=== PATIENT | male | born 1995 | race African-American/Black ===

== ENCOUNTER 2018-07-12 22:12 | Emergency (ER) | payer OTHER, SELFPAY ==
[2018-07-12 22:22] VITALS: BP 149/88; PULSE 69; RESP 14; TEMP 36.6; O2SAT 100; BMI 31.5
--- NOTE | 2018-07-12 22:27 | DI.CT.S_ITS ---
PROCEDURE: CT PELVIS W CON INDICATIONS: tori rectal abscess eval for deep infection TECHNIQUE: After the administration of intravenous contrast, 5 mm thick sections acquired from the iliac crests to the symphysis. 5 mm coronal and sagittal reformats were acquired. For radiation dose reduction, the following was used: automated exposure control, adjustment of mA and/or kV according to patient size. COMPARISON: None. FINDINGS: Image quality: Excellent. Peritoneum and bowel: There is mild thickening of rectum consistent with proctitis. There is no perirectal fluid collections to suggest abscess. Distal sigmoid colon demonstrate normal wall thickness and caliber. No free fluid or air. Genitourinary: Bladder wall thickness is normal. Nodes and vessels: No iliac, pelvic, or inguinal adenopathy by size criteria. Iliac vessels demonstrate normal size and enhancement. Bones: No suspicious bony lesions. Miscellaneous: No inguinal hernias. IMPRESSION: 1. Thickening of rectum consistent with proctitis. There is no perirectal fluid collection to suggest abscess. No significant discrepancy with the machinist 2nd shift radiology preliminary report. Dictated by: Satya Ontiveros M.D. on 07/13/2018 at 7:44 Approved by: Satya Ontiveros M.D. on 07/13/2018 at 7:48
--- NOTE | 2018-07-12 22:28 | ED.GENADULT ---
HPI - General Adult General Chief complaint: Skin/Abscess/Foreign Body Stated complaint: has a knot that is getting bigger Time Seen by Provider: 07/12/18 22:27 Source: patient Mode of arrival: ambulatory Limitations: no limitations History of Present Illness HPI narrative: patient is otherwise healthy 23-year-old male here for evaluation of a bump on his upper left inner thigh. He states that it has been getting worse over the past couple days. [place] was referred to General surgery however he did not make this appointment. He comes the emergency department today because it is now painful for him to walk. He states that is draining. Has never had anything like this before. Related Data Allergies Allergy/AdvReac Type Severity Reaction Status Date / Time prednisone Allergy Uncoded 07/12/18 22:22 Review of Systems Constitutional Denies fever(s) Gastrointestinal Gastrointestinal: Denies change in stool character Genitourinary Denies dysuria and Denies testicular pain Integumentary/Breasts Comments: Redness and a draining lump on his left upper inner thigh [facility] Medical History Healthy adult (Acute) Social History Smoking Status: Never smoker Social History Smoking Status: Never smoker Exam Initial Vital Signs Initial Vital Signs: Vital Signs Temperature 97.9 F 07/12/18 22:22 Pulse Rate 69 07/12/18 22:22 Respiratory Rate 14 07/12/18 22:22 Blood Pressure 149/88 H 07/12/18 22:22 Pulse Oximetry 100 07/12/18 22:22 Const General: cooperative, healthy appearing, comfortable, well developed, well groomed and No acute distress Orientation: alert, awake and oriented x3 HENMT Head: normal to inspection and normocephalic Resp Effort & Inspection: normal respiratory effort Cardio Rate: regular rate Skin Other: patient with a 2 cm area of induration with a punctate draining wound just left of his anus. Neuro General: alert, awake and oriented x3 Extrem General: normal to inspection and capillary refill normal Psych Appearance: grossly normal and well kempt Procedures Abscess I/D Site: other ( Buttocks) Side (if applicable): left Local Anesthetic: lidocaine 1% and with epi Amount of anesthesia used (mL): 3 Technique: incised with #11 blade Irrigation: No Packing used?: none Course Orders Ordered: ED Orders 07/12/18 22:27 CT pelvis w con Stat 07/12/18 22:40 Basic Metabolic Panel Stat Complete Blood Count AUTO DIFF Stat Discontinued Medications Sodium Chloride (Normal Saline 0.9%) 1,000 mls @ 1,000 mls/hr IV BOLUS ONE Stop: 07/12/18 23:26 Last Admin: 07/12/18 22:56 Dose: 1,000 mls/hr Vital Signs - 8 hr 07/12/18 22:22 07/12/18 22:31 Temperature 97.9 F Pulse Rate 69 65 Respiratory Rate 14 18 Blood Pressure 149/88 H Blood Pressure [Right Arm] 132/79 Pulse Oximetry 100 99 Medical Decision Making Lab Data Lab results reviewed: Yes I reviewed the patient's lab results. Result diagrams: 07/12/18 22:40 07/12/18 22:40 Lab Results 07/12/18 07/12/18 Range/Units 22:40 22:40 WBC 7.4 (4.5-11.0) X10^3/uL RBC 5.74 (4.5-5.9) X10^6/uL Hgb 15.3 (13.5-17.5) g/dL Hct 45.7 (41-53) % MCV 79.6 L (80-100) fL MCH 26.7 (26-34) PG MCHC 33.5 (30-36) % RDW 12.9 (11.6-14.8) % Plt Count 272 (150-400) X10^3/uL Neut % (Auto) 59.1 (50-75) % Lymph % (Auto) 32.0 (25-40) % [place] % (Auto) 7.3 (3-14) % Eos % (Auto) 0.8 L (2-4) % Baso % (Auto) 0.8 (0-2) % Neut # (Auto) 4300 (3194-9771) /uL Lymph # (Auto) 2400 (9667-7910) /uL [place] # (Auto) 500 (0-900) /uL Eos # (Auto) 100 (0-450) /uL Baso # (Auto) 100 (0-100) /uL Sodium 139 (137-145) mmol/L Potassium 3.9 (3.4-5.1) mmol/L Chloride 102 (98-107) mmol/L Carbon Dioxide 27 (22-32) mmol/L BUN 22 H (9-20) mg/dL Creatinine 1.00 (0.66-1.25) mg/dL Estimated GFR > 60.0 (>60) mL/min BUN/Creatinine Ratio 22.0 (6-22) Glucose 96 (70-100) mg/dL Calcium 9.3 (8.4-10.2) mg/dL Imaging Data CT pelvis: Radiologist's impression: minimal wall thickening involving lower rectum, nonspecific: Considerations would include minimal proctitis. There is no evidence of abscess MDM Narrative Medical decision making narrative: patient is nontoxic appearing. CT scan of the pelvis shows no deep abscess. Bedside ultrasound shows a small fluid collection very superficial. This was drained as described above. No surrounding erythema. No indication for antibiotics. No packing was placed. Patient was given care instructions. He expressed understanding and agreement with plan. Discharge Plan Departure Patient Disposition: Home Clinical Impression: Abscess of skin or subcutaneous tissue Qualifiers: Site of cutaneous abscess: buttock Qualified Code(s): L02.31 - Cutaneous abscess of buttock Instructions: DI for Incision and Drainage Activity Restrictions/Additional Instructions: keep the area clean. You can shower like normal. Use soap and water like normal. Contact your medical department for follow-up. Return to the emergency department for any new or worsening symptoms. Stand Alone Forms: Work Release Note
[2018-07-12 22:31] VITALS: BP 132/79; PULSE 65; RESP 18; O2SAT 99
[2018-07-12] MEDS: SODIUM CHLORIDE 0.9% 1,000 ML 1000 ML IV (22:56)
[2018-07-12 22:57] LABS: Add Manual Diff / Slide Review NO; Basophils Absolute Auto 100 /uL (0-100); Basophils Percent Auto 0.8 % (0-2); Eosinophils Absolute Auto 100 /uL (0-450); Eosinophils Percent Auto 0.8 % (2-4); Hematocrit 45.7 % (41-53); Hemoglobin 15.3 g/dL (13.5-17.5); Lymphocytes Absolute Auto 2400 /uL (1100-4500); Mean Corpuscular HGB Conc 33.5 % (30-36); Mean Corpuscular Hemoglobin 26.7 PG (26-34); Mean Corpuscular Volume 79.6 fL (80-100); Monocytes Absolute Auto 500 /uL (0-900); Monocytes Percent Auto 7.3 % (3-14); Neutrophils Absolute Auto 4300 /uL (1500-7000); Neutrophils Percent Auto 59.1 % (50-75); Platelet Count 272 X10^3/uL (150-400); Red Blood Cell Count 5.74 X10^6/uL (4.5-5.9); Red Cell Distribution Width 12.9 % (11.6-14.8); White Blood Cell Count 7.4 X10^3/uL (4.5-11.0)
[2018-07-12 23:05] LABS: Blood Urea Nitrogen 22 mg/dL (9-20); Calcium 9.3 mg/dL (8.4-10.2); Carbon Dioxide 27 mmol/L (22-32); Chloride 102 mmol/L (98-107); Estimated Glomerular Filt Rate > 60.0 mL/min (>60); Glucose 96 mg/dL (70-100); HEMOLYSIS 17 (0-50); Potassium 3.9 mmol/L (3.4-5.1); Sodium 139 mmol/L (137-145)
[2018-07-13 00:41] VITALS: BP 123/79; PULSE 80; RESP 14; O2SAT 100
== END 2018-07-13 00:40 | disposition home or self-care (01) ==
PROVIDERS: Emergency Provider Emergency Medicine
DX: L02.31 Cutaneous abscess of buttock (principal)
CPT/HCPCS: 10060; 72193; 80048; 85025; 96360; 96361; 99283; 99285; Q9967

== ENCOUNTER 2018-10-15 22:22 | Emergency (ER) | payer OTHER, SELFPAY ==
[2018-10-15 22:27] VITALS: BP 139/91; PULSE 69; RESP 14; TEMP 36.7; O2SAT 99
--- NOTE | 2018-10-15 23:27 | ED_ITS ---
HPI - Skin/Abscess/Foreign Bdy General Chief complaint: Skin/Abscess/Foreign Body Stated complaint: possible spider bite Time Seen by Provider: 10/15/18 22:31 Source: patient and family Mode of arrival: ambulatory Limitations: no limitations History of Present Illness HPI narrative: 23-year-old male occasional smoker with history of MRSA skin infections presents with a painful firm bump on his right buttock that is been present for the past few days. It hurts him to sit on it. He denies any drainage. He states it has come to a cole a bit. He denies fever or chills. He denies painful bowel movements. complaint: abscess/boil Onset (ago): day(s) Tetanus up to date: yes Location: buttocks Severity: mild Quality: aching Pain Consistency: constant Relieving factors: none Exacerbating factors: palpation Context: none Associated symptoms: denies other symptoms Treatments prior to arrival: none Related Data Allergies Allergy/AdvReac Type Severity Reaction Status Date / Time prednisone Allergy Uncoded 07/12/18 22:22 Review of Systems Constitutional Denies chills, Denies fever(s), Denies lethargy and Denies weakness Eyes Denies change in vision, Denies eye discharge, Denies irritation and Denies loss of vision ENT Ears, Nose, Mouth, and Throat: Denies change in voice, Denies neck pain and Denies sore throat Cardiovascular Denies chest pain, Denies irregular heart rhythm, Denies lightheadedness, Denies palpitations, Denies dyspnea, Denies dyspnea on exertion and Denies orthopnea Respiratory Denies cough, Denies dyspnea, Denies dyspnea on exertion and Denies wheezing Gastrointestinal Gastrointestinal: Denies abdominal pain, Denies change in bowel habits, Denies diarrhea, Denies nausea and Denies vomiting Genitourinary Denies hematuria, Denies flank pain, Denies urinary incontinence and Denies urinary urgency Musculoskeletal Denies neck pain Integumentary/Breasts Denies pruritus, Reports erythema, Denies rash, Reports skin pain, Reports skin swelling and Denies wounds Neurologic Denies confusion, Denies loss of vision and Denies weakness Psychiatric Denies anxiety, Denies confusion, Denies depression, Denies homicidal ideation and Denies suicidal ideation Endocrine Denies palpitations Hematologic/Lymphatic Denies easy bruising Allergic/Immunologic Denies wheezing [facility] Medical History Healthy adult (Acute) Social History Smoking Status: Never smoker Social History Smoking Status: Never smoker Exam Narrative Exam Narrative: GEN: AOx3 and in mild distress EYES: Pupils are equal, round, and reactive to light and accommodation. Extraoccular muscles are intact bilaterally. There is no subconjunctival hemorrhage or exudate. CHEST: Lungs are clear to auscultation bilaterally and free of wheezes, rales, or rhonchi. Heart rate is regular rhythm, there are no murmurs, clicks, rubs, or gallops. There is no chest wall tenderness. ABD: Abdomen is soft and nontender. There is no guarding or rebound. Bowel sounds are normal in all 4 quadrants. There is no mass or organomegaly. EXT: Full painless ROM of all extremities with no loss of sensation or strength. SKIN: 2 cm indurated, tender lesion on right buttock with small central pustule. Not fluctuant. No surrounding erythema. Initial Vital Signs Initial Vital Signs: Vital Signs Temperature 98.0 F 10/15/18 22:27 Pulse Rate 69 10/15/18 22:27 Respiratory Rate 14 10/15/18 22:27 Blood Pressure 139/91 H 10/15/18 22:27 Pulse Oximetry 99 10/15/18 22:27 Procedures Abscess I/D Site: other (R buttock) Side (if applicable): right Local Anesthetic: lidocaine 1% and with bicarb Amount of anesthesia used (mL): 3 Technique: needle aspiration Amount of fluid expressed (mL): 1 Irrigation: No Packing used?: none Complications: pain Course Vital Signs - 8 hr 10/15/18 22:27 Temperature 98.0 F Pulse Rate 69 Respiratory Rate 14 Blood Pressure 139/91 H Pulse Oximetry 99 Discharge Plan Departure Patient Disposition: Home Clinical Impression: Abscess of skin or subcutaneous tissue Qualifiers: Site of cutaneous abscess: buttock Qualified Code(s): L02.31 - Cutaneous abscess of buttock Discharge Date/Time: 10/15/18 23:35 Interventions: ED Discharge Assessment Last Done: 10/15/18 23:35 Instructions: DI for Skin Abscess Activity Restrictions/Additional Instructions: *You have been diagnosed with [acute superficial cutaneous abscess] *What to do: *Take medications as directed: Tylenol or motrin for pain *Follow up with your primary care provider in 2-3 days, call for an appointment. Let them know you were seen in the Emergency Department and that we ask that you be seen in follow up *Return to ER if you should have any new, worsening or concerning symptoms *Use of warm compresses and possibly epsom salt baths
== END 2018-10-15 23:35 | disposition home or self-care (01) ==
PROVIDERS: Emergency Provider Emergency Medicine
DX: L02.31 Cutaneous abscess of buttock (principal)
CPT/HCPCS: 99282

== ENCOUNTER 2019-03-18 23:33 | Emergency (ER) | payer OTHER, SELFPAY ==
[2019-03-18 23:51] VITALS: BP 142/73; PULSE 75; RESP 14; TEMP 36.7; O2SAT 96; BMI 30.1
--- NOTE | 2019-03-19 00:09 | DI.RAD.S_ITS ---
PROCEDURE: XR KNEE RT 3V INDICATIONS: pain after falling yesterday TECHNIQUE: 3 views of the knee were acquired. COMPARISON: None. FINDINGS: Bones: No fractures or dislocations. No suspicious bony lesions. Soft tissues: No joint effusion. No suspicious soft tissue calcifications. IMPRESSION: No acute osseous abnormality. Dictated by: Minh Washington M.D. on 03/19/2019 at 7:56 Approved by: Minh Washington M.D. on 03/19/2019 at 7:56
--- NOTE | 2019-03-19 00:09 | ED.LOWEXIN ---
HPI - Extremity Injury (Lower) General Chief Complaint: Extremity Injury, Lower Stated Complaint: RT knee injury yesterday/pain hard to walk Time Seen by Provider: 03/18/19 23:58 Source: patient Mode of arrival: Wheelchair Limitations: no limitations History of Present Illness HPI Narrative: Patient is otherwise healthy 23-year-old male here for evaluation of right knee injury. Patient states that yesterday he slipped while he was in the shower landing on his knee cap. His knee was bent at the time. Has had pain around this area and on the back of his knee since then. Came in this evening because he has had continued pain. Related Data Home Medications Medication Instructions Recorded Confirmed No Known Home Medications 03/18/19 03/18/19 Allergies Allergy/AdvReac Type Severity Reaction Status Date / Time prednisone Allergy Uncoded 03/18/19 23:55 Review of Systems Constitutional Constitutional: Denies fever(s) Musculoskeletal Comments: Right knee pain Integumentary/Breasts Skin/Breast: Denies rash Neurologic Neurologic: Denies behavioral changes Psychiatric Psychiatric: Denies behavioral changes Hematologic/Lymphatic Hematologic/Lymphatic: Denies easy bleeding and Denies easy bruising Patient History Medical History Healthy adult (Acute) Social History Smoking Status: Never smoker alcohol intake frequency: holidays/special occasions only Substance Use Type: does not use Exam Initial Vital Signs Initial Vital Signs: Vital Signs Temperature 98.0 F 03/18/19 23:51 Pulse Rate 75 03/18/19 23:51 Respiratory Rate 14 03/18/19 23:51 Blood Pressure 142/73 H 03/18/19 23:51 Pulse Oximetry 96 03/18/19 23:51 Const General: cooperative and comfortable Cardio Pulses: dorsalis pedis present Skin Other: Patient with a small skin abrasion on the tibial tuberosity of the right knee. This does not appear to be new. There is no surrounding erythema. Neuro Sensory Exam: no sensory deficits noted Extrem Other: Right hip unremarkable. Patient does have tenderness over the patella tendon of the right leg. He is able to do a straight leg raise but only a very small amount. He states this is secondary to pain and also weakness. No tenderness palpation of the quadriceps tendon. Does have some tenderness to palpation along the lateral hamstring posteriorly along the lateral joint line. No medial side tenderness. Minimal if any effusion. Procedures Orthopedic Splinting/Casting Injury #1: Side: right Lower Extremity Injury Location: knee Lower Extremity Immobilizer: knee immobilizer Other Orthopedic Equipment: crutches Post splinting neuro exam: intact Post splinting vascular exam: intact Placed by: Nursing Course Orders Ordered: ED Orders 03/19/19 00:09 XR knee RT 3V Stat Vital Signs Vital signs: Vital Signs - 8 hr 03/18/19 23:51 Temperature 98.0 F Pulse Rate 75 Respiratory Rate 14 Blood Pressure 142/73 H Pulse Oximetry 96 MDM - Extremity Injury (Lower) Imaging Data Knee x-ray: Attestation: I personally reviewed and interpreted this imaging study as follows: My impression: No fractures, no dislocations MDM Narrative Medical decision making narrative: Patient is neurovascularly intact. He is able to do somewhat of a straight leg raise however it is limited by pain. There is potentially a deficit in the patella tendon however it is somewhat difficult to tell. His x-rays are unremarkable. I do have some concern about a patella tendon injury. He could also have a lateral meniscal injury or both. Patient was placed in a knee immobilizer and given crutches as needed for comfort. He was given a CD with his x-rays on a to take to the Orthopedic Department over on the [facility]. He was instructed to contact [place] medical [place]. He expressed understanding agreement plan Discharge Plan Departure Patient Disposition: Home Clinical Impression: Right knee injury Qualifiers: Encounter type: initial encounter Qualified Code(s): S89.91XA - Unspecified injury of right lower leg, initial encounter Discharge Date/Time: 03/19/19 01:47 Instructions: How to Use Crutches, How To Perform RICE (Rest, Ice, Compress, Elevate) Activity Restrictions/Additional Instructions: Recommend that tomorrow you [place] and also your medical department for a follow-up. I do have some concern about a patella tendon injury. You can also ice your knee. I would recommend this as well. Return to the emergency department for any new or worsening symptoms Prescriptions: No Action No Known Home Medications RF: 0 Stand Alone Forms: Work Release Note
== END 2019-03-19 01:47 | disposition home or self-care (01) ==
PROVIDERS: Emergency Provider Emergency Medicine
DX: S89.91XA Unspecified injury of right lower leg, initial encounter (principal); W18.2XXA Fall in (into) shower or empty bathtub, initial encounter
CPT/HCPCS: 73562; 99283

== ENCOUNTER 2019-05-14 23:05 | Emergency (ER) | payer OTHER, SELFPAY ==
[2019-05-14 23:19] VITALS: BP 133/75; PULSE 88; RESP 15; TEMP 36.6; O2SAT 99; BMI 29.7
--- NOTE | 2019-05-14 23:25 | DI.RAD.S_ITS ---
PROCEDURE: XR ACUTE ABDOMEN SERIES INDICATIONS: Abdominal pain TECHNIQUE: One view chest and two views of the abdomen were acquired. COMPARISON: None. FINDINGS: Surgical changes and devices: None. Chest: Lungs are clear. Heart size is normal. No pleural effusions. No pneumoperitoneum. Abdomen: Bowel gas pattern is normal. Moderate amount of stool in colon. No suspicious calcifications. Visualized solid organ contours appear normal. Bones: No suspicious bony lesions. IMPRESSION: Normal bowel gas pattern. Dictated by: Satya Ontiveros M.D. on 05/15/2019 at 8:56 Approved by: Satya Ontiveros M.D. on 05/15/2019 at 8:57
--- NOTE | 2019-05-14 23:32 | ED_ITS ---
HPI - Nausea/Vomiting/Diarrhea General Chief complaint: Nausea/Vomiting/Diarrhea Stated complaint: NAUSEA STOMACH ACHE DIARRHEA Time Seen by Provider: 05/14/19 23:09 Source: patient Mode of arrival: Ambulatory Limitations: no limitations History of Present Illness HPI Narrative: 24M nonsmoker without significant medical history presents with the chief complaint of nausea, episodic abdominal pain and diarrhea since last night. He states his symptoms started about 6 hours after eating out. His friend had the same food and is not sick. No fever or chills. Patient states that the left lower quadrant pain is achy and crampy and does not have any provocation, palliation or radiation. He denies any history of the same. He states he has had multiple episodes of loose stools and that the pain seems to build until he has a bowel movement at which point it improves. He denies any recent antibiotics, international travel or bloody diarrhea. MD complaint: nausea, diarrhea and abdominal pain Onset (ago): hour(s) Description of Diarrhea: watery Associated Abdominal Pain: Yes Location of pain: LLQ Severity: moderate Quality: cramping Pain Consistency: intermittent Relieving factors: none Exacerbating factors: none Context: possible food poisoning Related Data Home Medications Medication Instructions Recorded Confirmed No Known Home Medications 03/18/19 03/18/19 Allergies Allergy/AdvReac Type Severity Reaction Status Date / Time prednisone Allergy Uncoded 03/18/19 23:55 Review of Systems Constitutional Constitutional: Denies chills, Denies fatigue, Denies fever(s), Denies frequent falls, Denies lethargy and Denies weakness Eyes Eyes: Denies change in vision, Denies eye discharge, Denies irritation and Denies loss of vision ENT Ears, Nose, Mouth, and Throat: Denies change in voice, Denies dizziness, Denies neck pain, Denies sore throat and Denies throat swelling Cardiovascular Cardiovascular: Denies chest pain, Denies irregular heart rhythm, Denies lightheadedness, Denies palpitations, Denies dyspnea, Denies dyspnea on exertion and Denies orthopnea Respiratory Respiratory: Denies cough, Denies dyspnea, Denies dyspnea on exertion and Denies wheezing Gastrointestinal Gastrointestinal: Reports abdominal pain, Denies change in bowel habits, Reports diarrhea and Reports nausea Genitourinary Genitourinary: Denies hematuria, Denies flank pain, Denies urinary incontinence and Denies urinary urgency Musculoskeletal Musculoskeletal: Denies back pain, Denies muscle weakness, Denies neck pain, Denies numbness and Denies tingling Integumentary/Breasts Skin/Breast: Denies pruritus, Denies erythema, Denies rash and Denies wounds Neurologic Neurologic: Denies behavioral changes, Denies confusion, Denies dizziness, Denies frequent falls, Denies loss of vision, Denies numbness, Denies tingling and Denies weakness Psychiatric Psychiatric: Denies anxiety, Denies behavioral changes, Denies confusion, Denies depression, Denies homicidal ideation and Denies suicidal ideation Endocrine Endocrine: Denies fatigue, Denies flushing and Denies palpitations Hematologic/Lymphatic Hematologic/Lymphatic: Denies easy bruising Allergic/Immunologic Allergic/Immunologic: Denies urticaria, Denies throat swelling and Denies wheezing Patient History Medical History Healthy adult (Acute) Social History Smoking Status: Never smoker Smoking Status: Never smoker alcohol intake frequency: holidays/special occasions only Substance Use Type: does not use Exam Narrative Exam Narrative: GENERAL: [24] year old patient appears stated age. Well- nourished, well-developed patient, in mild distress. HEAD: Atraumatic. Normocephalic. EYES: Pupils equal round and reactive. Extraocular motions intact. No scleral icterus. No injection or drainage. ENT: Nose without bleeding, purulent drainage. Throat without erythema, tonsillar hypertrophy or exudate. Airway patent. NECK: Trachea midline. Non tender CARDIOVASCULAR: Regular rate and rhythm without murmurs, gallops, or rubs. RESPIRATORY: Clear to auscultation. Breath sounds equal bilaterally. No wheezes, rales, or rhonchi. GASTROINTESTINAL: Abdomen soft, non-tender, nondistended. Increased bowel sounds EXTREMITIES: No edema or joint tenderness. BACK: Nontender without deformity or crepitance. No flank tenderness. NEURO: AOx3. SKIN: No rash or erythema of visible areas Initial Vital Signs Initial Vital Signs: Vital Signs Temperature 97.9 F 05/14/19 23:19 Pulse Rate 88 05/14/19 23:19 Respiratory Rate 15 05/14/19 23:19 Blood Pressure 133/75 05/14/19 23:19 Pulse Oximetry 99 05/14/19 23:19 Course Orders Ordered: ED Orders 05/14/19 23:25 XR acute abdomen series Stat 05/14/19 23:50 Complete Blood Count AUTO DIFF Stat Comprehensive Metabolic Panel Stat Discontinued Medications Sodium Chloride (Normal Saline 0.9%) 1,000 mls @ 1,000 mls/hr IV BOLUS ONE Stop: 05/15/19 00:23 Last Admin: 05/14/19 23:49 Dose: 1,000 mls/hr Documented by: GARRISON Ketorolac Tromethamine (Toradol) 15 mg IV NOW ONE Stop: 05/14/19 23:25 Last Admin: 05/14/19 23:50 Dose: 15 mg Documented by: GARRISON Ondansetron HCl (Zofran) 4 mg IV NOW ONE Stop: 05/14/19 23:25 Last Admin: 05/14/19 23:50 Dose: 4 mg Documented by: GARRISON Ondansetron HCl (Zofran Odt Prepack) 1 bottle MISC SEEINSTR ONE Stop: 05/15/19 01:03 Last Admin: 05/15/19 01:12 Dose: 1 bottle Documented by: LITTLE Vital Signs Vital signs: Vital Signs - 8 hr 05/15/19 01:17 Pulse Rate 92 H Respiratory Rate 14 Blood Pressure 126/85 Pulse Oximetry 99 MDM - Nausea/Vomiting/Diarrhea Lab Data Result diagrams: 05/14/19 23:50 05/14/19 23:50 Labs: Lab Results 05/14/19 05/14/19 Range/Units 23:50 23:50 WBC 6.0 (4.5-11.0) X10^3/uL RBC 5.10 (4.5-5.9) X10^6/uL Hgb 13.9 (13.5-17.5) g/dL Hct 41.7 (41-53) % MCV 81.8 (80-100) fL MCH 27.2 (26-34) PG MCHC 33.2 (30-36) % RDW 12.7 (11.6-14.8) % Plt Count 210 (150-400) X10^3/uL Neut % (Auto) 55.8 (50-75) % Lymph % (Auto) 34.8 (25-40) % [place] % (Auto) 6.8 (3-14) % Eos % (Auto) 1.7 L (2-4) % Baso % (Auto) 0.9 (0-2) % Neut # (Auto) 3300 (7337-6706) /uL Lymph # (Auto) 2100 (5271-2057) /uL [place] # (Auto) 400 (0-900) /uL Eos # (Auto) 100 (0-450) /uL Baso # (Auto) 100 (0-100) /uL Sodium 138 (137-145) mmol/L Potassium 3.9 (3.4-5.1) mmol/L Chloride 105 (98-107) mmol/L Carbon Dioxide 25 (22-32) mmol/L BUN 14 (9-20) mg/dL Creatinine 0.80 (0.66-1.25) mg/dL Estimated GFR > 60.0 (>60) mL/min BUN/Creatinine Ratio 17.5 (6-22) Glucose 114 H (70-100) mg/dL Calcium 9.1 (8.4-10.2) mg/dL Total Bilirubin 0.5 (0.2-1.3) mg/dL AST 23 (17-59) IU/L ALT 19 (<50) IU/L Alkaline Phosphatase 81 (38-126) U/L Total Protein 6.8 (6.3-8.2) g/dL Albumin 4.2 (3.5-5.0) g/dL Globulin 2.6 (1.7-4.1) g/dL Albumin/Globulin Ratio 1.6 (1.0-2.8) Imaging Data Abdominal x-ray: My Impression: nonspecific bowel gas pattern Discharge Plan Departure Patient Disposition: Home Clinical Impression: Gastroenteritis Discharge Date/Time: 05/15/19 01:34 Instructions: DI for Viral Gastroenteritis -- Adult Activity Restrictions/Additional Instructions: *You have been diagnosed with [gastroenteritis, possibly from bad food] *What to do: *Take medications as directed *Follow up with your primary care provider in 2-3 days, call for an appointment. Let them know you were seen in the Emergency Department and that we ask that you be seen in follow up *Return to ER if you should have any new, worsening or concerning symptoms 1. Drink plenty of fluids with frequent small sips. 2. For the next 24 hours a clear liquid diet is advised. After that please employ a brat diet which would include bananas, rice, apples, toast. 3. Please take medications as directed. 4. Please follow-up with your doctor in the next 1-2 days. Call the office for an appointment. 5. Please return to the emergency Department for any worsening or persistent symptoms, such as increasing pain or fever. Prescriptions: No Action No Known Home Medications RF: 0 Stand Alone Forms: Work Release Note
[2019-05-14] MEDS: SODIUM CHLORIDE 0.9% 1,000 ML 1000 ML IV (23:49)
[2019-05-14] MEDS: ONDANSETRON 4 MG/2 ML INJ IV (23:50)
[2019-05-14] MEDS: KETOROLAC 60 MG/2 ML VIAL 15 MG IV (23:50)
[2019-05-14 23:58] LABS: Add Manual Diff / Slide Review NO; Basophils Absolute Auto 100 /uL (0-100); Basophils Percent Auto 0.9 % (0-2); Eosinophils Absolute Auto 100 /uL (0-450); Eosinophils Percent Auto 1.7 % (2-4); Hematocrit 41.7 % (41-53); Hemoglobin 13.9 g/dL (13.5-17.5); Lymphocytes Absolute Auto 2100 /uL (1100-4500); Lymphocytes Percent Auto 34.8 % (25-40); Mean Corpuscular HGB Conc 33.2 % (30-36); Mean Corpuscular Hemoglobin 27.2 PG (26-34); Mean Corpuscular Volume 81.8 fL (80-100); Monocytes Absolute Auto 400 /uL (0-900); Monocytes Percent Auto 6.8 % (3-14); Neutrophils Absolute Auto 3300 /uL (1500-7000); Neutrophils Percent Auto 55.8 % (50-75); Platelet Count 210 X10^3/uL (150-400); Red Cell Distribution Width 12.7 % (11.6-14.8)
[2019-05-15 00:07] LABS: Alanine Aminotransferase 19 IU/L (<50); Albumin 4.2 g/dL (3.5-5.0); Albumin Globulin Ratio 1.6 (1.0-2.8); Alkaline Phosphatase 81 U/L (38-126); Aspartate Aminotransferase 23 IU/L (17-59); BUN Creatinine Ratio 17.5 (6-22); Bilirubin Total 0.5 mg/dL (0.2-1.3); Blood Urea Nitrogen 14 mg/dL (9-20); Calcium 9.1 mg/dL (8.4-10.2); Carbon Dioxide 25 mmol/L (22-32); Chloride 105 mmol/L (98-107); Estimated Glomerular Filt Rate > 60.0 mL/min (>60); Globulin 2.6 g/dL (1.7-4.1); Glucose 114 mg/dL (70-100); HEMOLYSIS 15 (0-50); Potassium 3.9 mmol/L (3.4-5.1); Sodium 138 mmol/L (137-145); Total Protein 6.8 g/dL (6.3-8.2)
[2019-05-15] MEDS: ONDANSETRON 4 MG ODT PREPACK 1 BOTTLE MISC (01:12)
[2019-05-15 01:17] VITALS: BP 126/85; PULSE 92; RESP 14; O2SAT 99
== END 2019-05-15 01:34 | disposition home or self-care (01) ==
PROVIDERS: Emergency Provider Emergency Medicine
DX: K52.9 Noninfective gastroenteritis and colitis, unspecified (principal)
CPT/HCPCS: 36415; 74022; 80053; 85025; 96374; 96375; 99283; 99284; J1885; J2405

== ENCOUNTER 2020-01-27 20:13 | Emergency (ER) | payer OTHER, SELFPAY ==
[2020-01-27 20:20] VITALS: BP 148/77; PULSE 70; RESP 16; TEMP 36.8; O2SAT 99; BMI 32.5
--- NOTE | 2020-01-27 20:30 | ED_ITS ---
HPI - Back Pain/Injury General Chief Complaint: Back Pain/Injury Stated Complaint: back pain x2 days Time Seen by Provider: 01/27/20 20:21 Source: patient Mode of arrival: Ambulatory Limitations: no limitations History of Present Illness HPI Narrative: Otherwise healthy 24-year-old male here for evaluation of 2 days of lower back pain. He states that it started when he was bending over to grape picker an object. He states he has taken a couple doses of naproxen without much improvement. No radiation to his legs. No fevers. No urinary symptoms. No bowel symptoms. Has injured his back in the past with that was many years ago. Here because he states that it hurts when he sits for an extended period of time. Related Data Home Medications Medication Instructions Recorded Confirmed No Known Home Medications 03/18/19 03/18/19 Allergies Allergy/AdvReac Type Severity Reaction Status Date / Time prednisone AdvReac Uncoded 01/27/20 20:45 Review of Systems Constitutional Constitutional: Denies fever(s) Cardiovascular Cardiovascular: Denies chest pain and Denies dyspnea Respiratory Respiratory: Denies dyspnea Gastrointestinal Gastrointestinal: Denies abdominal pain Genitourinary Genitourinary: Denies dysuria, Denies urinary frequency, Denies urinary hesitancy, Denies urinary incontinence and Denies urinary urgency Genitourinary: Denies urinary frequency, Denies dysuria, Denies urinary incontinence, Denies urinary hesitancy and Denies urinary urgency Musculoskeletal Musculoskeletal: Reports back pain Integumentary/Breasts Skin/Breast: Denies lesions and Denies rash Neurologic Neurologic: Denies behavioral changes Psychiatric Psychiatric: Denies behavioral changes Hematologic/Lymphatic Hematologic/Lymphatic: Denies easy bleeding and Denies easy bruising Allergic/Immunologic Allergic/Immunologic: Denies urticaria Patient History Medical History Healthy adult (Acute) Social History Smoking Status: Never smoker Smoking Status: Never smoker alcohol intake frequency: holidays/special occasions only Substance Use Type: does not use Exam Initial Vital Signs Initial Vital Signs: Vital Signs Temperature 98.3 F 01/27/20 20:20 Pulse Rate 70 01/27/20 20:20 Respiratory Rate 16 01/27/20 20:20 Blood Pressure 148/77 H 01/27/20 20:20 Pulse Oximetry 99 01/27/20 20:20 Const General: cooperative and comfortable Limitations: mental status not altered HENMT Head: normal to inspection and normocephalic Resp Effort & Inspection: normal respiratory effort Cardio Rate: regular rate Back/Spine/Pelvis Thoracic/Lumbar Spine: paraspinal tenderness (Lumbar region), No thoracic spinal tenderness and No lumbar spinal tenderness Skin Lesions: no lesions Rashes: no rashes Neuro General: patient alert, patient awake and patient oriented x3 Gait: normal gait Extrem General: normal to inspection and capillary refill normal Psych Appearance: grossly normal and well kempt Course Orders Ordered: Discontinued Medications Cyclobenzaprine HCl (Flexeril 10 Mg Prepack) 1 bottle MISC SEEINSTR ONE Stop: 01/27/20 20:31 Last Admin: 01/27/20 20:46 Dose: 1 bottle Documented by: KARISSA Ketorolac Tromethamine (Toradol) 30 mg IM NOW ONE Stop: 01/27/20 20:31 Last Admin: 01/27/20 20:46 Dose: 30 mg Documented by: KARISSA Vital Signs Vital signs: Vital Signs - 8 hr 01/27/20 20:20 01/27/20 21:12 Temperature 98.3 F Pulse Rate 70 65 Respiratory Rate 16 12 Blood Pressure 148/77 H 148/73 H Pulse Oximetry 99 100 MDM - Back Pain/Injury MDM Narrative Medical decision making narrative: Two days symptoms. No red flag symptoms concerning for cauda equina or fracture. I feel we can hold on any radiologic studies for now. I do suspect this is musculoskeletal injury. Was given shot of Toradol. Will send home with Flexeril. He has had anti-inflammatories at home. Informed him that he needed to talk with his medical department about any work related restrictions. He expressed understanding and agreement. Discharge Plan Departure Patient Disposition: Home Clinical Impression: Strain of lumbar region Qualifiers: Encounter type: initial encounter Qualified Code(s): S39.012A - Strain of muscle, fascia and tendon of lower back, initial encounter Discharge Date/Time: 01/27/20 21:14 Instructions: DI for Back Strain or Sprain Activity Restrictions/Additional Instructions: The muscle relaxers you were given this evening can cause some drowsiness. Be sure that you talk with your medical department tomorrow morning for any work- related restrictions. Recommend that you continue with light stretching and heat and ice and massage. You have no restrictions on your activities. Your back pain will most likely improve in the next several days. Follow-up with your medical department. Prescriptions: No Action No Known Home Medications RF: 0 Stand Alone Forms: Work Release Note
[2020-01-27] MEDS: CYCLOBENZAPRINE 10 MG PREPACK 1 BOTTLE MISC (20:46)
[2020-01-27] MEDS: KETOROLAC 60 MG/2 ML VIAL 30 MG IM (20:46)
[2020-01-27 21:12] VITALS: BP 148/73; PULSE 65; RESP 12; O2SAT 100
== END 2020-01-27 21:14 | disposition home or self-care (01) ==
PROVIDERS: Emergency Provider Emergency Medicine
DX: S39.012A Strain of muscle, fascia and tendon of lower back, initial encounter (principal)
CPT/HCPCS: 96372; 99283; J1885

== ENCOUNTER 2020-04-04 22:39 | Emergency (ER) | payer OTHER, SELFPAY ==
[2020-04-04 22:45] VITALS: BP 162/96; O2SAT 96
[2020-04-04 22:47] VITALS: BP 162/95; PULSE 90; RESP 18; TEMP 36.8; O2SAT 97
[2020-04-04 23:00] VITALS: PULSE 78; O2SAT 97
[2020-04-04] MEDS: ONDANSETRON 4 MG/2 ML INJ IV (23:02)
[2020-04-04 23:03] LABS: Add Manual Diff / Slide Review NO; Basophils Absolute Auto 100 /uL (0-100); Basophils Percent Auto 0.8 % (0-2); Eosinophils Absolute Auto 0 /uL (0-450); Eosinophils Percent Auto 0.6 % (2-4); Hematocrit 46.6 % (41-53); Hemoglobin 15.5 g/dL (13.5-17.5); Lymphocytes Absolute Auto 2100 /uL (1100-4500); Lymphocytes Percent Auto 26.8 % (25-40); Mean Corpuscular HGB Conc 33.3 % (30-36); Mean Corpuscular Volume 81.1 fL (80-100); Monocytes Absolute Auto 600 /uL (0-900); Monocytes Percent Auto 7.7 % (3-14); Neutrophils Absolute Auto 4900 /uL (1500-7000); Neutrophils Percent Auto 64.1 % (50-75); Platelet Count 272 X10^3/uL (150-400); Red Blood Cell Count 5.74 X10^6/uL (4.5-5.9); Red Cell Distribution Width 12.6 % (11.6-14.8); White Blood Cell Count 7.7 X10^3/uL (4.5-11.0)
[2020-04-04] MEDS: PANTOPRAZOLE 40 MG VIAL IV (23:03)
[2020-04-04] MEDS: SODIUM CHLORIDE 0.9% 1,000 ML 1000 ML IV (23:03)
[2020-04-04 23:11] LABS: Alanine Aminotransferase 38 IU/L (<50); Albumin 4.4 g/dL (3.5-5.0); Albumin Globulin Ratio 1.2 (1.0-2.8); Alkaline Phosphatase 82 U/L (38-126); Aspartate Aminotransferase 27 IU/L (17-59); Bilirubin Total 0.7 mg/dL (0.2-1.3); Blood Urea Nitrogen 13 mg/dL (9-20); Calcium 9.4 mg/dL (8.4-10.2); Carbon Dioxide 31 mmol/L (22-32); Chloride 105 mmol/L (98-107); Estimated Glomerular Filt Rate > 60.0 mL/min (>60); Globulin 3.6 g/dL (1.7-4.1); Glucose 100 mg/dL (70-100); HEMOLYSIS < 15 (0-50); Lipase 226 U/L (23-300); Sodium 139 mmol/L (137-145)
[2020-04-04 23:30] VITALS: PULSE 90; O2SAT 98
[2020-04-04 23:35] LABS: COVID19 -Nasal RAPID Negative (Negative)
[2020-04-05] VITALS: PULSE 61; O2SAT 97
[2020-04-05 00:22] VITALS: BP 125/61; PULSE 84; O2SAT 98
--- NOTE | 2020-04-05 00:25 | ED_ITS ---
HPI - Nausea/Vomiting/Diarrhea General Chief complaint: Nausea/Vomiting/Diarrhea Stated complaint: ABD PAIN NAUSEA VOMITING Time Seen by Provider: 04/04/20 22:40 Source: patient Mode of arrival: Ambulatory Limitations: no limitations History of Present Illness HPI Narrative: 24-year-old male nonsmoker with noncontributory medical history presents with a chief complaint of nausea, vomiting and diarrhea over the past few days. He denies any new medications, bad food, recent travel or exposure to other ill persons. He states he has had multiple episodes of both vomiting and diarrhea and feels a bit fatigued and weak. He has had no fever chills. He denies any blood in the stool. MD complaint: nausea, vomiting and diarrhea Onset (ago): day(s) Description of Vomiting: food contents Description of Diarrhea: watery Associated Abdominal Pain: Yes Location of pain: diffuse Severity: moderate Quality: cramping Pain Consistency: intermittent Relieving factors: none Exacerbating factors: none Related Data Home Medications Medication Instructions Recorded Confirmed No Known Home Medications 03/18/19 03/18/19 Allergies Allergy/AdvReac Type Severity Reaction Status Date / Time prednisone Allergy Verified 01/27/20 21:23 Review of Systems Constitutional Constitutional: Denies chills, Denies fatigue, Denies fever(s), Denies frequent falls, Denies lethargy and Denies weakness Eyes Eyes: Denies change in vision, Denies eye discharge, Denies irritation and Denies loss of vision ENT Ears, Nose, Mouth, and Throat: Denies change in voice, Denies dizziness, Denies neck pain, Denies sore throat and Denies throat swelling Cardiovascular Cardiovascular: Denies chest pain, Denies irregular heart rhythm, Denies lightheadedness, Denies palpitations, Denies dyspnea, Denies dyspnea on exertion and Denies orthopnea Respiratory Respiratory: Denies cough, Denies dyspnea, Denies dyspnea on exertion and Denies wheezing Gastrointestinal Gastrointestinal: Reports abdominal pain, Denies change in bowel habits, Reports diarrhea, Reports nausea and Reports vomiting Musculoskeletal Musculoskeletal: Denies neck pain and Denies numbness Integumentary/Breasts Skin/Breast: Denies pruritus, Denies erythema, Denies rash and Denies wounds Neurologic Neurologic: Denies behavioral changes, Denies confusion, Denies dizziness, Denies frequent falls, Denies loss of vision, Denies numbness and Denies weakness Psychiatric Psychiatric: Denies anxiety, Denies behavioral changes, Denies confusion, Denies depression, Denies homicidal ideation and Denies suicidal ideation Endocrine Endocrine: Denies fatigue, Denies flushing and Denies palpitations Hematologic/Lymphatic Hematologic/Lymphatic: Denies easy bruising Allergic/Immunologic Allergic/Immunologic: Denies urticaria, Denies throat swelling and Denies wheezing Patient History Medical History Healthy adult Social History Smoking Status: Never smoker Smoking Status: Never smoker alcohol intake frequency: holidays/special occasions only Substance Use Type: does not use Exam Narrative Exam Narrative: GENERAL: [24] year old patient appears stated age. Well-nourishe d, well-developed patient, in mild distress. HEAD: Atraumatic. Normocephalic. EYES: Pupils equal round and reactive. Extraocular motions intact. No scleral icterus. No injection or drainage. ENT: Nose without bleeding, purulent drainage. Throat without erythema, tonsillar hypertrophy or exudate. Airway patent. NECK: Trachea midline. Non tender CARDIOVASCULAR: Regular rate and rhythm without murmurs, gallops, or rubs. RESPIRATORY: Clear to auscultation. Breath sounds equal bilaterally. No wheezes, rales, or rhonchi. GASTROINTESTINAL: Abdomen soft, non-tender, nondistended. Increased bowel sounds in all 4 quadrants EXTREMITIES: No edema or joint tenderness. BACK: Nontender without deformity or crepitance. No flank tenderness. NEURO: AOx3. SKIN: No rash or erythema of visible areas Initial Vital Signs Initial Vital Signs: Vital Signs Blood Pressure 162/96 H 04/04/20 22:45 Pulse Oximetry 96 04/04/20 22:45 Course Course Course Narrative: Patient feeling much better after the above-stated therapies. Very reassuring exam, and labs. Patient given return precautions and questions answered to his apparent satisfaction. Orders Ordered: Discontinued Medications Sodium Chloride (Normal Saline 0.9%) 1,000 mls @ 1,000 mls/hr IV BOLUS ONE Stop: 04/04/20 23:52 Last Infusion: 04/05/20 01:24 Dose: 0 mls/hr Documented by: Admin: 04/04/20 23:03 Dose: 1,000 mls/hr Documented by: AASHISH Ondansetron HCl (Ondansetron 4 Mg/2 Ml Inj) 4 mg IV NOW ONE Stop: 04/04/20 22:54 Last Admin: 04/04/20 23:02 Dose: 4 mg Documented by: AASHISH Ondansetron HCl (Ondansetron 4 Mg Odt Prepack) 1 bottle MISC SEEINSTR ONE Stop: 04/05/20 01:15 Last Admin: 04/05/20 01:20 Dose: 1 bottle Documented by: AASHISH Pantoprazole Sodium (Pantoprazole 40 Mg Vial) 40 mg IV NOW ONE Stop: 04/04/20 22:55 Last Admin: 04/04/20 23:03 Dose: 40 mg Documented by: AASHISH Vital Signs Vital signs: Vital Signs - 8 hr 04/04/20 22:45 04/04/20 22:47 04/04/20 23:00 Temperature 98.3 F Pulse Rate 90 78 Respiratory Rate 18 Blood Pressure 162/96 H 162/95 H Pulse Oximetry 96 97 97 MDM - Nausea/Vomiting/Diarrhea Lab Data Result diagrams: 04/04/20 22:50 04/04/20 22:50 Labs: Lab Results 04/04/20 04/04/20 04/04/20 Range/Units 22:50 22:50 23:14 WBC 7.7 (4.5-11.0) X10^3/uL RBC 5.74 (4.5-5.9) X10^6/uL Hgb 15.5 (13.5-17.5) g/dL Hct 46.6 (41-53) % MCV 81.1 (80-100) fL MCH 27.0 (26-34) PG MCHC 33.3 (30-36) % RDW 12.6 (11.6-14.8) % Plt Count 272 (150-400) X10^3/uL Neut % (Auto) 64.1 (50-75) % Lymph % (Auto) 26.8 (25-40) % Lee % (Auto) 7.7 (3-14) % Eos % (Auto) 0.6 L (2-4) % Baso % (Auto) 0.8 (0-2) % Neut # (Auto) 4900 (8261-7067) /uL Lymph # (Auto) 2100 (9496-3096) /uL Lee # (Auto) 600 (0-900) /uL Eos # (Auto) 0 (0-450) /uL Baso # (Auto) 100 (0-100) /uL Sodium 139 (137-145) mmol/L Potassium 4.0 (3.4-5.1) mmol/L Chloride 105 (98-107) mmol/L Carbon Dioxide 31 (22-32) mmol/L BUN 13 (9-20) mg/dL Creatinine 1.18 (0.66-1.25) mg/dL Estimated GFR > 60.0 (>60) mL/min BUN/Creatinine Ratio 11.0 (6-22) Glucose 100 (70-100) mg/dL Calcium 9.4 (8.4-10.2) mg/dL Total Bilirubin 0.7 (0.2-1.3) mg/dL AST 27 (17-59) IU/L ALT 38 (<50) IU/L Alkaline Phosphatase 82 (38-126) U/L Total Protein 8.0 (6.3-8.2) g/dL Albumin 4.4 (3.5-5.0) g/dL Globulin 3.6 (1.7-4.1) g/dL Albumin/Globulin Ratio 1.2 (1.0-2.8) Lipase 226 (23-300) U/L COVID-19 PCR Negative (Negative) Urine Dip Bedside Urine Glucose Negative Bedside Urine Bilirubin - Negative Bedside Urine Ketone - Negative Urine Specific [place] 1.025 Bedside Urine Occult Blood - Negative Bedside Urine pH 6.0 Bedside Urine Protein +/- 15 Bedside Urine Urobilinogen - Negative Bedside Urine Nitrite - Negative Bedside Urine Leukocytes - Negative Esterase Discharge Plan Departure Patient Disposition: Home Clinical Impression: Vomiting Qualifiers: Vomiting type: unspecified Vomiting Intractability: non-intractable Nausea presence: with nausea Qualified Code(s): R11.2 - Nausea with vomiting, unspecified Diarrhea Qualifiers: Diarrhea type: unspecified type Qualified Code(s): R19.7 - Diarrhea, unspecifie d Instructions: Diarrhea, DI for Vomiting -- Adult Activity Restrictions/Additional Instructions: *You have been diagnosed with [nausea, vomiting and diarrhea] *What to do: *Take medications as directed *Follow up with your primary care provider in 2-3 days, call for an ap pointment. Let them know you were seen in the Emergency Department and that we ask that you be seen in follow up *Return to ER if you should have any new, worsening or concerning symptoms 1. Drink plenty of fluids with frequent small sips. 2. For the next 24 hours a clear liquid diet is advised. After that please employ a B.R.A.T. diet which would include bananas, rice, apples, toast and other mild food items Prescriptions: No Action No Known Home Medications RF: 0 Stand Alone Forms: Work Release Note
[2020-04-05 00:30] VITALS: BP 121/60; PULSE 68; O2SAT 97
[2020-04-05 01:00] VITALS: BP 125/67; PULSE 88; O2SAT 98
[2020-04-05] MEDS: ONDANSETRON 4 MG ODT PREPACK 1 BOTTLE MISC (01:20)
== END 2020-04-05 01:27 | disposition home or self-care (01) ==
PROVIDERS: Emergency Provider Emergency Medicine
DX: R11.2 Nausea with vomiting, unspecified (principal); R19.7 Diarrhea, unspecified
CPT/HCPCS: 36415; 80053; 81003; 83690; 85025; 87635; 96361; 96374; 96375; 99281; 99284; C9113; J2405